=== PATIENT | female | born 1935 | race Caucasian/White ===

== ENCOUNTER 2021-12-28 10:04 | Day surgery (SDC) | payer MEDICARE, BC ==
[2021-12-27 09:25] VITALS: BMI 28.1
[2021-12-28 11:02] VITALS: RESP 16; TEMP 97
[2021-12-28 11:10] LABS: Glucose,Whole Blood 133 mg/dL (75-99)
[2021-12-28] MEDS ORDERED: LACTATED RINGERS 1,000 ML IV ONE (11:11)
[2021-12-28] MEDS ORDERED: PROPOFOL 10 MG/ML 20 ML VIAL IV ONE (11:23)
--- NOTE | 2021-12-28 11:36 | P.PCN ---
Date of Procedure: 12/28/21 Procedure(s) Performed: BRIEF HISTORY: Patient is a 86-year-old, pleasant, white female scheduled for an upper endoscopy as a part of evaluation of progressive dysphagia to solids and liquids for the last 9 months duration. She feels the food gets stuck in her throat area and occasional odynophagia. Long-standing history of GERD and has been on omeprazole 20 mg daily for 5 years. PROCEDURE PERFORMED: Esophagogastroduodenoscopy with biopsy. PREOPERATIVE DIAGNOSIS: Dysphagia to solids and liquids for 9 months duration. IV sedation per anesthesia. PROCEDURE: After informed consent was obtained, the patient was brought into the endoscopy unit. IV sedation was administered by Anesthesia under continuous monitoring. Initially the Olympus GIF-140 video endoscope was inserted into the mouth. Esophagus intubated without any difficulty. But there was mild tightness and upper esophageal sphincter suspicious for mild cricopharyngeal dysfunction. It was gradually advanced into the stomach and duodenum and carefully examined. The bulb and the second part of the duodenum appeared normal. The scope at this time was withdrawn to the stomach, adequately insufflated with air, and upon careful examination, mucosa of the antrum, body, cardia and the fundus appeared normal. The scope was then withdrawn into the esophagus. The GE junction was located at 39 cm from the incisors. Small hiatal hernia noted. The esophagus appeared normal. There were no erosions or ulcerations seen, no evidence of esophageal stricture seen. The proximal cervical esophagus was carefully examined and there was evidence of mild cricopharyngeal dysfunction at the upper esophageal sphincter noted. The patient tolerated the procedure well. IMPRESSION: 1. Mild cricopharyngeal dysfunction. 2. Normal-appearing esophagus with no evidence of esophagitis or esophageal stricture 3. Small hiatal hernia 4. Mild antral gastritis. RECOMMENDATIONS: The findings of this examination were discussed with the patient as well as a family. She was advised to follow with the biopsy results. Her symptoms of dysphagia was likely related to mild cricopharyngeal dysfunction. She will continue with soft diet.
[2021-12-28 11:57] VITALS: BP 120/65; PULSE 60
== END 2021-12-28 12:24 | disposition home or self-care (01) ==
LOC: ORWHC2ENDO 10:04 → MERGE 11:50 → ORWHC2ENDO 12:24
PROVIDERS: ATTEND Internal Medicine Gastroenterology
DX: R13.14 Dysphagia, pharyngoesophageal phase (principal); K29.50 Unspecified chronic gastritis without bleeding; K44.9 Diaphragmatic hernia without obstruction or gangrene; K21.00 Gastro-esophageal reflux disease with esophagitis, without bleeding; I10 Essential (primary) hypertension; E78.5 Hyperlipidemia, unspecified; E11.9 Type 2 diabetes mellitus without complications; E07.9 Disorder of thyroid, unspecified; Z95.1 Presence of aortocoronary bypass graft; E89.0 Postprocedural hypothyroidism; Z95.2 Presence of prosthetic heart valve; Z98.890 Other specified postprocedural states; Z97.2 Presence of dental prosthetic device (complete) (partial); Z79.890 Hormone replacement therapy; Z79.84 Long term (current) use of oral hypoglycemic drugs; Z79.02 Long term (current) use of antithrombotics/antiplatelets; Z79.82 Long term (current) use of aspirin; Z79.899 Other long term (current) drug therapy; Z88.0 Allergy status to penicillin; Z88.2 Allergy status to sulfonamides
CPT/HCPCS: 88305; 43239; J2704

== ENCOUNTER → 2022-02-17 | Outpatient (CLI) | payer MEDICARE, BC ==
--- NOTE | 2022-02-17 16:25 | NM ---
EXAMINATION TYPE: NM bone 3 phase DATE OF EXAM: 02/17/2022 COMPARISON: NONE HISTORY: Right knee pain Delayed whole-body scanning was performed following the injection of 22.4 mCi Tc 99m MDP. Blood flow and blood pool imaging was performed. Static Images were acquired 5.25 hours post injection. FINDINGS: Blood flow: There is increased radiotracer flow to the distal right thigh compared to the left on blo od flow images. Blood pool: Blood pool images appear symmetrical between left and right. No focal accumulation is mayur dent Static images: There is mild increased uptake within the left knee tibial plateau. This is likely deg enerative in nature. There is some mild posterior uptake within the right femur metaphysis adjacent t o the prosthesis. IMPRESSION: 1. Radiotracer distribution through the knees on 3 phase bone scan could suggest some soft tissue inf ection of the right thigh. 2. Suspicious uptake to suggest osteomyelitis is not identified. 3. There may be some degenerative change the left knee.
== END | disposition home or self-care (01) ==
LOC: RADNMMAIN 07:21
PROVIDERS: ATTEND Orthopaedic Surgery
DX: M25.561 Pain in right knee (principal); R93.7 Abnormal findings on diagnostic imaging of other parts of musculoskeletal system
CPT/HCPCS: 78315; A9503

== ENCOUNTER → 2022-07-11 | Outpatient (CLI) | payer MEDICARE, BC ==
[2022-07-11 14:56] LABS: HCT 38.5 % (37.2-46.3); HGB 12.8 g/dL (12.0-15.0); MCH 28.9 pg (27.0-32.0); MCHC 33.2 g/dL (32.0-37.0); MCV 86.9 fL (80.0-97.0); Mean Platelet Volume 10.6 fL (9.5-12.2); NRBC Per 100 WBC 0 /100 WBCS (0.0-0.0); Platelet Count 195 X 10*3/uL (140-440); RBC 4.43 X 10*6/uL (4.10-5.20); RDW 12.9 % (11.5-14.5); WBC 5.05 X 10*3/uL (4.50-10.00)
[2022-07-11 15:27] LABS: Erythrocyte Sedimentation Rate 16 mm/Hr (0-30)
[2022-07-11 15:49] LABS: ALT 18 U/L (8-44); AST 27 U/L (13-35); African American GFR (CKD) 56.7 (60.0-200.0); Albumin 4.7 g/dL (3.8-4.9); Albumin/Globulin Ratio 2.06 (1.60-3.17); Alkaline Phosphatase 69 U/L (41-126); BUN/Creat Ratio 12.31 Ratio (12.00-20.00); Bilirubin, Conjugated <0.20 mg/dL (0.20-0.40); Blood Urea Nitrogen 12.8 mg/dL (9.0-27.0); Calcium 9.5 mg/dL (8.7-10.3); Carbon Dioxide 24.3 mmol/L (20.0-27.5); Chloride 94 mmol/L (96-109); Chol/HDL Ratio 2.13 Ratio; Globulin 2.3 g/dL (1.6-3.3); Glucose 124 mg/dL (70-110); LDL Cholesterol,Calculated 57.4 mg/dL (0.0-131.0); Potassium 4.7 mmol/L (3.5-5.5); Sodium 132 mmol/L (135-145); Total Protein 6.9 g/dL (6.2-8.2)
== END | disposition home or self-care (01) ==
LOC: LABWHC1 08:54
PROVIDERS: ATTEND Internal Medicine Cardiovascular Disease
DX: I50.32 Chronic diastolic (congestive) heart failure (principal); E78.2 Mixed hyperlipidemia; R55 Syncope and collapse; D64.9 Anemia, unspecified; Z95.2 Presence of prosthetic heart valve
CPT/HCPCS: 36415; 80053; 80061; 82248; 82607; 84443; 85027; 85652; 86141

== ENCOUNTER → 2022-07-17 | Outpatient (CLI) | payer MEDICARE, BC ==
--- NOTE | 2022-07-17 19:27 | MR ---
EXAMINATION TYPE: MR brain wo con DATE OF EXAM: 07/17/2022 6:46 PM COMPARISON: None. CLINICAL INDICATION:Female, 87 years old with history of R41.3 AMNESIA, R41.0 DISORIENTATION, R47.01 APHASI; TECHNIQUE: Multi planar, multi sequence imaging was performed through the brain including: T1, T2, In version recovery, Diffusion weighted imaging, and gradient echo imaging. No gadolinium was given. FINDINGS: Generalized atrophy changes with dilation of ventricles in proportion. Patchy areas of high T2 signal intensity are seen within the periventricular white matter. Midline structures show no abnormality. Diffusion-weighted imaging shows no evidence of restricted diffusion. The susceptibility weighted peggy ges do not reveal suggest microhemorrhage in the left posterior cerebral hemisphere. The bone marrow signal is within normal limits. The paranasal sinuses demonstrate mild mucosal thicke yovana. The globes demonstrate bilateral aphakia. IMPRESSION: 1. No evidence of intracranial mass or acute/subacute infarct. 2. Nonspecific white matter changes, likely secondary to small vessel ischemic disease. 3. Age related changes and cerebral volume loss.
== END | disposition home or self-care (01) ==
LOC: RADMRIMAIN 17:54
PROVIDERS: ATTEND Psychiatry & Neurology Neurology
DX: I67.82 Cerebral ischemia (principal)
CPT/HCPCS: 70551

== ENCOUNTER → 2022-10-17 | Outpatient (CLI) | payer MEDICARE, BC ==
--- NOTE | 2022-10-18 09:28 | US ---
EXAMINATION TYPE: US kidneys/renal and bladder DATE OF EXAM: 10/17/2022 COMPARISON: CLINICAL HISTORY: M54.50 Low back pain R39.15 Urgency of urination. Patient states she had increase u rine frequency but has since gone away. EXAM MEASUREMENTS: Right Kidney: 9.3 x 4.5 x 4.5 cm Left Kidney: 9.6 x 3.4 x 4.9 cm Right Kidney: No hydronephrosis or masses seen Left Kidney: No hydronephrosis or masses seen Bladder: Moderately distended, anechoic Bilateral Jets not seen IMPRESSION: 1. Normal renal ultrasound.
== END | disposition home or self-care (01) ==
LOC: RADUSWWP 16:14
PROVIDERS: ATTEND Family Medicine
DX: M54.50 Low back pain, unspecified (principal); R39.15 Urgency of urination; R35.0 Frequency of micturition
CPT/HCPCS: 76770

== ENCOUNTER 2022-11-01 00:54 | Emergency (ER) | payer MEDICARE, BC ==
[2022-11-01 01:15] VITALS: TEMP 97.6
[2022-11-01] MEDS ORDERED: SODIUM CHLORIDE 0.9% 500 ML 500 ML IV STA (01:16)
[2022-11-01] MEDS ORDERED: SODIUM CHLORIDE 0.9% 1,000 ML IV STA ×2 (01:16)
--- NOTE | 2022-11-01 01:19 | ED ---
Weakness HPI - General Chief complaint: Fall Stated complaint: Fall, syncope Time Seen by Provider: 11/01/22 01:16 Source: patient, family, RN notes reviewed, old records reviewed, Caregiver Mode of arrival: wheelchair Limitations: no limitations - History of Present Illness Initial comments: This is a 87-year-old female to the emergency department for evaluation patient presents today for evaluation of weakness severe weakness and fall. No injury noted from fall. Patient has multiple recent falls is on lately medication to help her sleep at night. Patient has been a little bit weak for the last day or 2 history of dehydration fall in the past with syncopal event MD Complaint: generalized weakness, lack of energy, difficulty walking -: hour(s) Location: generalized Severity: severe Severity scale (1-10): 10 Quality: other (0) Consistency: constant Improves with: none Worsens with: none Context: recent illness, history of similar Associated Symptoms: confusion, syncope - Related Data Home Medications Medication Instructions Recorded Confirmed Clopidogrel Bisulfate [Plavix] 75 mg PO DAILY 06/15/15 12/27/21 Levothyroxine Sodium [Synthroid] 112 mcg PO DAILY 06/15/15 12/28/21 Metoprolol Tartrate [Lopressor] 50 mg PO BID 06/15/15 12/28/21 Pravastatin Sodium [Pravachol] 80 mg PO HS 06/15/15 12/28/21 Zolpidem [Ambien] 10 mg PO HS PRN 06/15/15 12/28/21 metFORMIN HCL [Glucophage] 500 mg PO BID 06/15/15 12/28/21 Aspirin [Adult Low Dose Aspirin EC] 81 mg PO DAILY 12/27/21 12/27/21 Gabapentin [Neurontin] 100 mg PO 1200,2000 12/27/21 12/28/21 Gabapentin [Neurontin] 300 mg PO 0800,1700 12/27/21 12/28/21 Isosorbide Mononitrate ER [Imdur] 60 mg PO DAILY 12/27/21 12/28/21 Omeprazole 20 mg PO DAILY 12/27/21 12/28/21 amLODIPine [Norvasc] 5 mg PO HS 12/27/21 12/28/21 Allergies Allergy/AdvReac Type Severity Reaction Status Date / Time Penicillins Allergy Rash/Hives Verified 11/01/22 01:07 sulfamethoxazole Allergy Nausea Verified 11/01/22 01:07 [From Bactrim] trimethoprim [From Bactrim] Allergy Nausea Verified 11/01/22 01:07 Review of Systems ROS Statement: Those systems with pertinent positive or pertinent negative responses have been documented in the HPI. ROS Other: All systems not noted in ROS Statement are negative. 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 Last Myocardial Infarction Date:: 2003 History of Any Multi-Drug Resistant Organisms: None Reported Past Surgical History: Back Surgery, Joint Replacement, Orthopedic Surgery Additional Past Surgical History / Comment(s): 06/23/15 Anterior decompression a nd fusion C4-5, C5-6 with NIM monitoring. HX: vipul knee replacement, vipul knee arthroscopy, rt shoulder rotator cuff, vipul carpal tunnel, cyst removed left kidney, colonoscopy Past Anesthesia/Blood Transfusion Reactions: No Reported Reaction Additional Past Anesthesia/Blood Transfusion Reaction / Comment(s): hx blood transfusions for anemia- denies reaction. Date of Last Stent Placement:: 2007 Past Psychological History: No Psychological Hx Reported Smoking Status: Former smoker Past Alcohol Use History: None Reported Past Drug Use History: None Reported - Past Family History Brother(s) Family Medical History: Cancer Additional Family Medical History / Comment(s): lung cancer Sister(s) Family Medical History: Cancer Additional Family Medical History / Comment(s): lung cancer Mother Family Medical History: Myocardial Infarction (MT) Additional Family Medical History / Comment(s): Mother of a MT at age 76 yrs. Father Additional Family Medical History / Comment(s): Father during aneurysm surgery. He was 76yrs old. General Exam Limitations: no limitations General appearance: alert, in no apparent distress Head exam: Present: atraumatic, normocephalic, normal inspection Eye exam: Present: normal appearance, PERRL, EOMI. Absent: scleral icterus, conjunctival injection, periorbital swelling ENT exam: Present: normal exam, mucous membranes moist Neck exam: Present: normal inspection. Absent: tenderness, meningismus, lymphadenopathy Respiratory exam: Present: normal lung sounds bilaterally. Absent: respiratory distress, wheezes, rales, rhonchi, stridor Cardiovascular Exam: Present: regular rate, normal rhythm, normal heart sounds. Absent: systolic murmur, diastolic murmur, rubs, gallop, clicks GI/Abdominal exam: Present: soft, normal bowel sounds. Absent: distended, tenderness, guarding, rebound, rigid Extremities exam: Present: normal inspection, full ROM, normal capillary refill. Absent: tenderness, pedal edema, joint swelling, calf tenderness Back exam: Present: normal inspection Neurological exam: Present: alert, oriented X3, CN II-XII intact Psychiatric exam: Present: normal affect, normal mood Skin exam: Present: warm, dry, intact, normal color. Absent: rash Course Vital Signs 11/01/22 11/01/22 11/01/22 01:08 01:48 02:18 Temperature 97.6 F Pulse Rate 56 L 66 Pulse Rate [ 58 L Apical] Respiratory 16 14 Rate Blood Pressure 71/37 114/63 O2 Sat by Pulse 95 97 Oximetry 11/01/22 02:57 Temperature Pulse Rate 62 Pulse Rate [ Apical] Respiratory 16 Rate Blood Pressure 138/77 O2 Sat by Pulse 98 Oximetry - Reevaluation(s) Reevaluation #1: 11/01/22 02:11 Medical record is reviewed Reevaluation #2: 11/01/22 03:29 Patient symptoms are significant improved Reevaluation #3: 11/01/22 03:29 Patient informed results and questions are answered Reevaluation #4: 11/01/22 02:11 Differential Weakness: Hypoglycemia, shock, sepsis, hyponatremia, anemia, infection, MT, ETOH, adverse medicine reaction, overdose, stroke, this is not meant to be an all-inclusive list. Reevaluation #5: 11/01/22 02:12 Was pt. sent in by a medical professional or institution? @ -no Did you speak to anyone other than the patient for history? @ -EMS, family/daughter Did you review nursing and triage notes? @ -agreeno Were old charts reviewed? @ -[outside hosp., previous admissions, EMS record, old EKG, old radiological studies, urgent care reports/EKGs, jail records?] Differential Diagnosis? @ -see prior EKG interpreted by me (3pts min.)? @ -yes X-rays interpreted by me (1pt min.)? @ -yes CT interpreted by me (1pt min.)? @ -[none] U/S interpreted by me (1pt. min.)? @ -[none] What testing was considered but not performed? (CT, X-rays, U/S, labs)? Why? @ no What meds were considered but not given? Why? @ -no Did you discuss the management of the patient with other professionals? @ -no Did you reconcile home meds? @ -[none] Was smoking cessation discussed for >3mins.? @ -[none] Was critical care preformed (if so, how long)? @ -[none] Were there social determinants of health that impacted care today? How? (Homelessness, low income, unemployed, alcoholism, drug addiction, transportation, low edu. Level, literacy, decrease access to med. care, fci, rehab)? @ -no Was there de-escalation of care discussed even if they declined? (Discuss DNR or withdrawal of care, Hospice)? @ -no What co-morbidities impacted this encounter? (DM, HTN, Smoking, COPD, CAD, Cancer, CVA, Hep., AIDS, mental health diagnosis, sleep apnea, morbid obesity)? @ -no Was patient admitted / discharged? @ -discharge Undiagnosed new problem with uncertain prognosis? @ -[none] Drug Therapy requiring intensive monitoring for toxicity (Heparin, Nitro, Insul in, Cardizem)? @ -[none] Were any procedures done? @ -[none] Diagnosis/symptom? @ -no Acute, or Chronic, or Acute on Chronic? @ -no Uncomplicated (without systemic symptoms) or Complicated (systemic symptoms)? @ -no Side effects of treatment? @ -[none] Exacerbation, Progression, or Severe Exacerbation] @ -[no] Poses a threat to life or bodily function? @ -[no] 11/01/22 03:28 EKG Findings - EKG Comments: EKG Findings:: EKG is sinus bradycardia 58 OR 221 QRS 152 QTC 458 Medical Decision Making - Medical Decision Making 87 female to the emergency department status post fall this is a trip and fall possibly medication induced Hydration blood pressure induced. No triadic injury is noted. Lab values are normal urine is negative patient can be discharged home - Lab Data Result diagrams: 11/01/22 01:11/01/22 01:30 Lab Results 11/01/22 11/01/22 11/01/22 Range/Units 01: 01:30 01:30 WBC 4.6 (3.8-10.6) k/uL RBC 4.01 (3.80-5.40) m/uL Hgb 12.1 (11.4-16.0) gm/dL Hct 35.3 (34.0-46.0) % MCV 88.1 (80.0-100.0) fL MCH 30.1 (25.0-35.0) pg MCHC 34.1 (31.0-37.0) g/dL RDW 13.1 (11.5-15.5) % Plt Count 125 L (150-450) k/uL MPV 8.8 Neutrophils % 57 % Lymphocytes % 30 % Monocytes % 9 % Eosinophils % 1 % Basophils % 1 % Neutrophils # 2.6 (1.3-7.7) k/uL Lymphocytes # 1.4 (1.0-4.8) k/uL Monocytes # 0.4 (0-1.0) k/uL Eosinophils # 0.0 (0-0.7) k/uL Basophils # 0.0 (0-0.2) k/uL PT 10.2 (9.0-12.0) sec INR 1.0 (<1.2) APTT 23.2 (22.0-30.0) sec Sodium 131 L (137-145) mmol/L Potassium 4.5 (3.5-5.1) mmol/L Chloride 100 (98-107) mmol/L Carbon Dioxide 23 (22-30) mmol/L Anion Gap 8 mmol/L BUN 20 H (7-17) mg/dL Creatinine 1.03 (0.52-1.04) mg/dL Est GFR (CKD-EPI)AfAm 57 (>60 ml/min/1.73 sqM) Est GFR (CKD-EPI)NonAf 50 (>60 ml/min/1.73 sqM) Glucose 138 H (74-99) mg/dL Plasma Lactic Acid Higinio (0.7-2.0) mmol/L Calcium 8.3 L (8.4-10.2) mg/dL Phosphorus 4.7 H (2.5-4.5) mg/dL Magnesium 1.3 L (1.6-2.3) mg/dL Total Bilirubin 0.5 (0.2-1.3) mg/dL AST 26 (14-36) U/L ALT 16 (4-34) U/L Alkaline Phosphatase 48 (38-126) U/L Troponin I (0.000-0.034) ng/mL NT-Pro-B Natriuret Pep pg/mL Total Protein 5.9 L (6.3-8.2) g/dL Albumin 3.5 (3.5-5.0) g/dL TSH 2.110 (0.465-4.680) mIU/L Urine Color Urine Appearance (Clear) Urine pH (5.0-8.0) Ur Specific Jackson (1.001-1.035) Urine Protein (Negative) Urine Glucose (UA) (Negative) Urine Ketones (Negative) Urine Blood (Negative) Urine Nitrite (Negative) Urine Bilirubin (Negative) Urine Urobilinogen (<2.0) mg/dL Ur Leukocyte Esterase (Negative) Urine RBC (0-5) /hpf Urine WBC (0-5) /hpf Ur Squamous Epith Cells (0-4) /hpf Urine Bacteria (None) /hpf Hyaline Casts (0-2) /lpf Urine Mucus (None) /hpf 11/01/22 11/01/22 11/01/22 Range/Units 01:30 01:30 01:30 WBC (3.8-10.6) k/uL RBC (3.80-5.40) m/uL Hgb (11.4-16.0) gm/dL Hct (34.0-46.0) % MCV (80.0-100.0) fL MCH (25.0-35.0) pg MCHC (31.0-37.0) g/dL RDW (11.5-15.5) % Plt Count (150-450) k/uL MPV Neutrophils % % Lymphocytes % % Monocytes % % Eosinophils % % Basophils % % Neutrophils # (1.3-7.7) k/uL Lymphocytes # (1.0-4.8) k/uL Monocytes # (0-1.0) k/uL Eosinophils # (0-0.7) k/uL Basophils # (0-0.2) k/uL PT (9.0-12.0) sec INR (<1.2) APTT (22.0-30.0) sec Sodium (137-145) mmol/L Potassium (3.5-5.1) mmol/L Chloride (98-107) mmol/L Carbon Dioxide (22-30) mmol/L Anion Gap mmol/L BUN (7-17) mg/dL Creatinine (0.52-1.04) mg/dL Est GFR (CKD-EPI)AfAm (>60 ml/min/1.73 sqM) Est GFR (CKD-EPI)NonAf (>60 ml/min/1.73 sqM) Glucose (74-99) mg/dL Plasma Lactic Acid Higinio 1.4 (0.7-2.0) mmol/L Calcium (8.4-10.2) mg/dL Phosphorus (2.5-4.5) mg/dL Magnesium (1.6-2.3) mg/dL Total Bilirubin (0.2-1.3) mg/dL AST (14-36) U/L ALT (4-34) U/L Alkaline Phosphatase (38-126) U/L Troponin I <0.012 (0.000-0.034) ng/mL NT-Pro-B Natriuret Pep 1220 pg/mL Total Protein (6.3-8.2) g/dL Albumin (3.5-5.0) g/dL TSH (0.465-4.680) mIU/L Urine Color Urine Appearance (Clear) Urine pH (5.0-8.0) Ur Specific Jackson (1.001-1.035) Urine Protein (Negative) Urine Glucose (UA) (Negative) Urine Ketones (Negative) Urine Blood (Negative) Urine Nitrite (Negative) Urine Bilirubin (Negative) Urine Urobilinogen (<2.0) mg/dL Ur Leukocyte Esterase (Negative) Urine RBC (0-5) /hpf Urine WBC (0-5) /hpf Ur Squamous Epith Cells (0-4) /hpf Urine Bacteria (None) /hpf Hyaline Casts (0-2) /lpf Urine Mucus (None) /hpf 11/01/22 Range/Units 04:03 WBC (3.8-10.6) k/uL RBC (3.80-5.40) m/uL Hgb (11.4-16.0) gm/dL Hct (34.0-46.0) % MCV (80.0-100.0) fL MCH (25.0-35.0) pg MCHC (31.0-37.0) g/dL RDW (11.5-15.5) % Plt Count (150-450) k/uL MPV Neutrophils % % Lymphocytes % % Monocytes % % Eosinophils % % Basophils % % Neutrophils # (1.3-7.7) k/uL Lymphocytes # (1.0-4.8) k/uL Monocytes # (0-1.0) k/uL Eosinophils # (0-0.7) k/uL Basophils # (0-0.2) k/uL PT (9.0-12.0) sec INR (<1.2) APTT (22.0-30.0) sec Sodium (137-145) mmol/L Potassium (3.5-5.1) mmol/L Chloride (98-107) mmol/L Carbon Dioxide (22-30) mmol/L Anion Gap mmol/L BUN (7-17) mg/dL Creatinine (0.52-1.04) mg/dL Est GFR (CKD-EPI)AfAm (>60 ml/min/1.73 sqM) Est GFR (CKD-EPI)NonAf (>60 ml/min/1.73 sqM) Glucose (74-99) mg/dL Plasma Lactic Acid Higinio (0.7-2.0) mmol/L Calcium (8.4-10.2) mg/dL Phosphorus (2.5-4.5) mg/dL Magnesium (1.6-2.3) mg/dL Total Bilirubin (0.2-1.3) mg/dL AST (14-36) U/L ALT (4-34) U/L Alkaline Phosphatase (38-126) U/L Troponin I (0.000-0.034) ng/mL NT-Pro-B Natriuret Pep pg/mL Total Protein (6.3-8.2) g/dL Albumin (3.5-5.0) g/dL TSH (0.465-4.680) mIU/L Urine Color Yellow Urine Appearance Clear (Clear) Urine pH 5.5 (5.0-8.0) Ur Specific Jackson 1.014 (1.001-1.035) Urine Protein Negative (Negative) Urine Glucose (UA) Negative (Negative) Urine Ketones Negative (Negative) Urine Blood Negative (Negative) Urine Nitrite Negative (Negative) Urine Bilirubin Negative (Negative) Urine Urobilinogen <2.0 (<2.0) mg/dL Ur Leukocyte Esterase Small H (Negative) Urine RBC 2 (0-5) /hpf Urine WBC 5 (0-5) /hpf Ur Squamous Epith Cells 1 (0-4) /hpf Urine Bacteria Occasional H (None) /hpf Hyaline Casts 19 H (0-2) /lpf Urine Mucus Rare H (None) /hpf - Radiology Data Radiology results: report reviewed (CT brain C-spine chest and pelvis x-ray are negative for acute disease), image reviewed Disposition Clinical Impression: Pre-syncope, Syncope, Fall, Weakness, Dehydration Disposition: HOME SELF-CARE Condition: Fair Is patient prescribed a controlled substance at d/c from ED?: No Referrals: Karri Decker DO [Primary Care Provider] - 1-2 days Time of Disposition: 04:45
[2022-11-01 02:01] LABS: Basophils % (A) 1 %; Eosinophils % (A) 1 %; HCT 35.3 % (34.0-46.0); HGB 12.1 gm/dL (11.4-16.0); Lymphocytes # (A) 1.4 k/uL (1.0-4.8); Lymphocytes % (A) 30 %; MCH 30.1 pg (25.0-35.0); MCHC 34.1 g/dL (31.0-37.0); MCV 88.1 fL (80.0-100.0); Mean Platelet Volume 8.8; Monocytes # (A) 0.4 k/uL (0-1.0); Monocytes % (A) 9 %; Neutrophils # (A) 2.6 k/uL (1.3-7.7); Neutrophils % (A) 57 %; Platelet Count 125 k/uL (150-450); RBC 4.01 m/uL (3.80-5.40); RDW 13.1 % (11.5-15.5); WBC 4.6 k/uL (3.8-10.6)
[2022-11-01 02:15] LABS: Albumin 3.5 g/dL (3.5-5.0); Calcium 8.3 mg/dL (8.4-10.2); Magnesium 1.3 mg/dL (1.6-2.3); Phosphorus 4.7 mg/dL (2.5-4.5); Potassium 4.5 mmol/L (3.5-5.1); Total Bilirubin 0.5 mg/dL (0.2-1.3); Total Protein 5.9 g/dL (6.3-8.2)
--- NOTE | 2022-11-01 02:27 | CT ---
EXAMINATION TYPE: CT brain jenn vigil DATE OF EXAM: 11/01/2022 COMPARISON: None HISTORY: fall syncope CT DLP: 1348.4 mGycm Automated exposure control for dose reduction was used. Images of the brain and cervical spine obtained with no contrast. There is mild cerebral cortical atrophy. There is no mass effect or midline shift. No sign of intracr anial hemorrhage. There is some mild hypodensity in the periventricular white matter. The calvarium i s intact. The skull base is intact. There is normal aeration of the mastoid sinuses. There is some mucosal thic kening in the ethmoid and maxillary sinuses. The cervical vertebra have normal alignment. There is plate with screws fusing anteriorly the cervica l spine from C4 to C6. No fracture seen. Facet joints are intact. Prevertebral soft tissues are intac t. There is degenerative endplate spurring at C6-7. IMPRESSION: Mild cerebral atrophy. No acute intracranial abnormality. Mild chronic small vessel ischemia. Cervical spine fusion surgery. Spondylosis at C6-7. No fracture seen.
--- NOTE | 2022-11-01 02:39 | XR ---
EXAMINATION TYPE: XR pelvis AP view DATE OF EXAM: 11/01/2022 COMPARISON: NONE HISTORY: Pain TECHNIQUE: Single view FINDINGS: The pelvic ring is intact. Proximal femurs are intact. There is minor acetabular spurring. No hip fracture seen. There is posterior fusion surgery in the lower lumbar spine. Sacroiliac joints are intact. IMPRESSION: No acute abnormality of the pelvis. No hip fracture.
--- NOTE | 2022-11-01 02:41 | XR ---
EXAMINATION TYPE: XR chest 1V DATE OF EXAM: 11/01/2022 COMPARISON: 01/23/2022 HISTORY: Fall. Short of breath. TECHNIQUE: Single view FINDINGS: Heart is enlarged. There are sternal wires. There is mild pulmonary congestion. There are c hest leads. No pneumothorax. There is aortic valve surgery. IMPRESSION: Pulmonary congestion increased compared to old exam and could be mild heart failure.
[2022-11-01 02:46] LABS: Partial Thromboplastin Time 23.2 sec (22.0-30.0); Prothrombin Time 10.2 sec (9.0-12.0)
[2022-11-01 02:57] VITALS: BP 138/77; PULSE 62; RESP 16
[2022-11-01 04:40] LABS: Appearance,Urine Clear (Clear); Bacteria,Urine Occasional /hpf; Bilirubin,Urine Negative (Negative); Blood,Urine Negative (Negative); Color,Urine Yellow; Glucose,Urine (UA) Negative (Negative); Hyaline Casts,Urine 19 /lpf (0-2); Ketones,Urine Negative (Negative); Leukocyte Esterase,Urine Small (Negative); Mucus,Urine Rare /hpf; Nitrite,Urine Negative (Negative); PH, Urine 5.5 (5.0-8.0); Protein,Urine Negative (Negative); RBC,Urine 2 /hpf (0-5); Specific Gravity,Urine 1.014 (1.001-1.035); Squamous Epithelial Cell,Urine 1 /hpf (0-4); Urobilinogen,Urine <2.0 mg/dL (<2.0); WBC,Urine 5 /hpf (0-5)
== END 2022-11-01 04:53 | disposition home or self-care (01) ==
LOC: EC 00:54
DX: R55 Syncope and collapse (principal); R53.1 Weakness; E86.0 Dehydration; I67.82 Cerebral ischemia; M47.812 Spondylosis without myelopathy or radiculopathy, cervical region; I11.9 Hypertensive heart disease without heart failure; I25.10 Atherosclerotic heart disease of native coronary artery without angina pectoris; E11.9 Type 2 diabetes mellitus without complications; K21.9 Gastro-esophageal reflux disease without esophagitis; E78.5 Hyperlipidemia, unspecified; I25.2 Old myocardial infarction; M19.90 Unspecified osteoarthritis, unspecified site; I26.99 Other pulmonary embolism without acute cor pulmonale; E07.9 Disorder of thyroid, unspecified; Z87.891 Personal history of nicotine dependence; Z79.890 Hormone replacement therapy; Z79.82 Long term (current) use of aspirin; Z79.02 Long term (current) use of antithrombotics/antiplatelets; Z79.84 Long term (current) use of oral hypoglycemic drugs; Z79.899 Other long term (current) drug therapy; Z88.0 Allergy status to penicillin; Z88.2 Allergy status to sulfonamides; Z88.1 Allergy status to other antibiotic agents; W18.30XA Fall on same level, unspecified, initial encounter; Y92.29 Other specified public building as the place of occurrence of the external cause
CPT/HCPCS: 36415; 70450; 71045; 72125; 72170; 80053; 81001; 83605; 83735; 83880; 84100; 84443; 84484; 85025; 85610; 85730; 93005; 96360; 96361; 99285

== ENCOUNTER → 2022-11-13 | Outpatient (CLI) | payer MEDICARE, BC ==
--- NOTE | 2022-11-13 10:19 | FL ---
EXAMINATION TYPE: FL barium swallow DATE OF EXAM: 11/13/2022 10:08 AM COMPARISON: No direct comparisons. CLINICAL INDICATION:Female, 87 years old with history of R13.10 DYSPHAGIA; PHH, TECHNIQUE: The procedure was explained and patient history elicited. All patient questions were ans wered prior to start of procedure. Multiple spot fluoroscopic images of the esophagus were obtained a fter the oral ingestion of effervescent crystals and liquid barium as the contrast agent. Fluoroscopic time: 12 seconds Fluoroscopic images: 180 FINDINGS: Delayed initiation of swallow. The esophagus demonstrates normal primary and secondary peristalsis. Tertiary contractions in the sha ronda. The esophageal mucosa is smooth without evidence of focal stricture, ulceration, or abnormal out pouching. No gastroesophageal reflux disease was identified . Cervical fusion hardware demonstrated. Midline sternal wires. Vascular calcification of the aorta. Ao rtic root stent graft. IMPRESSION: 1. Mild esophageal dysmotility with delayed initiation of swallow. 2. No hiatal hernia or gastroesophageal reflux identified.
== END | disposition home or self-care (01) ==
LOC: RADUSWWP 09:39
PROVIDERS: ATTEND Internal Medicine Gastroenterology
DX: K22.4 Dyskinesia of esophagus (principal); R13.10 Dysphagia, unspecified
CPT/HCPCS: 74220

== ENCOUNTER → 2023-03-01 | Outpatient (CLI) | payer MEDICARE, BC ==
--- NOTE | 2023-03-01 18:00 | US ---
EXAMINATION TYPE: US thyroid st tissue head/neck DATE OF EXAM: 03/01/2023 COMPARISON: CT brain C-spine 12/14/2022 CLINICAL INDICATION: Female, 87 years old with history of C73 MALIG NEOPLASM THYROID, L04.0 ACUTE LYM PHADENI; Hx thyroid cancer in 1962, thyroid gland removed. Patient is on synthroid. GLAND SIZE: Right Lobe: Surgically absent Left Lobe: Surgically absent Isthmus Thickness: Surgically absent NODULES Hypoechoic tissue with vascularity seen within the right thyroid bed measurin.5 x 0.6 x 0.4 cm. Bilateral neck scanned. Scanned patient's area of palpable concern within the right submandibular area. Two septated hypoecho ic areas seen. #1 superior: 1.0 x 0.9 x 0.7 cm. #2 inferior: 1.3 x 1.3 x 0.8 cm. These appear to correspond to inferior right parotid gland lesions prior CT. IMPRESSION: 1. Hypoechoic tissue within the right thyroidectomy bed with vascularity measuring up to 0.6 cm conc erning for possible recurrence versus residual thyroid tissue. Further evaluation is recommended with consideration for ultrasound-guided biopsy. 2. Additionally there are 2 hypoechoic lesions with posterior acoustic shadowing within the right in ferior parotid region with internal color flow concerning for possible metastasis versus salivary gla nd lesion. Further evaluation is recommended with consideration for ultrasound-guided biopsy.
== END | disposition home or self-care (01) ==
LOC: RADUSWWP 15:54
PROVIDERS: ATTEND Family Medicine
DX: C73 Malignant neoplasm of thyroid gland (principal); L04.0 Acute lymphadenitis of face, head and neck
CPT/HCPCS: 76536

== ENCOUNTER 2023-04-19 09:03 | Day surgery (SDC) | payer MEDICARE, BC ==
[2023-04-19 09:42] VITALS: RESP 16; TEMP 97.6
--- NOTE | 2023-04-19 10:42 | US ---
ULTRASOUND GUIDED FNA RIGHT NECK MASSES BIOPSY: CLINICAL HISTORY: Request for FNA to right neck masses FINDINGS: The procedure was explained to the patient. The risks, complications, benefits and alternatives were discussed and any questions were answered. Informed consent was obtained. Patient was placed supin e on the ultrasound table and prepped and draped in the usual sterile fashion. Utilizing a 25 gauge needle, 3 passes were made into the both of the requested right neck masses. A single 18-gauge core samples obtained of the larger right neck mass measuring 1.3 cm and located inferiorly. Patient was stable throughout the procedure. Pathology is pending. All elements of maximal barrier technique were utilized. IMPRESSION: 1. Successful ultrasound guided FNA\core biopsy requested right neck masses.
[2023-04-19 15:43] VITALS: BP 127/76; PULSE 78
== END 2023-04-19 11:00 | disposition home or self-care (01) ==
LOC: RADPROMAIN 09:03
PROVIDERS: ATTEND Otolaryngology
DX: D36.7 Benign neoplasm of other specified sites (principal)
CPT/HCPCS: 10005; 10006; 42400; 76942; 88173; 88305

== ENCOUNTER → 2023-11-29 | Outpatient (CLI) | payer MEDICARE, BC ==
--- NOTE | 2023-11-29 20:05 | US ---
EXAMINATION TYPE: US st tissue head DATE OF EXAM: 11/29/2023 COMPARISON: 03/01/2023 CLINICAL INDICATION: Female, 88 years old with history of R22.1 LOCALIZED SWELLING, MASS AND LUMP, NE CK; Patient states that she has a palpable lump in the right parotid area. FINDINGS: Nitrator Operator notes: There are two lesions located in the parotid gland. The superior, solid appearing nodule measures 0.7 x 0.7 x 0.7cm, previously measuring 1.0 x 0.7 x 0.9 . The inferior, complex nodule measures 1.3 x 0.8 x 0.7 with vascularity within, previously measuring 1.3 x 0.8 x 1.3cm. Left parotid region scanned for comparison. IMPRESSION: 2 solid right parotid gland nodules. These are stable to slightly smaller measuring 7 mm versus 10 mm , previously superiorly. 1.3 x 0.8 cm versus 1.3 x 1.37 m, previously. Correlate with results on prio r biopsy.
== END | disposition home or self-care (01) ==
LOC: RADUSWWP 14:50
PROVIDERS: ATTEND Otolaryngology
DX: D11.0 Benign neoplasm of parotid gland (principal); R22.1 Localized swelling, mass and lump, neck
CPT/HCPCS: 76536

== ENCOUNTER → 2024-08-14 | Outpatient (CLI) | payer MEDICARE, BC ==
--- NOTE | 2024-08-19 09:22 | PE ---
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 Images are reviewed on the computer in the coronal, a xial, and sagittal planes. Reconstructed rotating images are created on independent workstation and reviewed on the computer. A non-contrast CT is performed in conjunction with the PET scan. Glucose level 122 mg/dL CT DLP: 379 mGycm, Automated exposure control for dose reduction was used. COMPARISON: CT 12/14/2022, PET/CT None, MRI: None FINDINGS: Mediastinal SUV mean is 5.1 . Hepatic parenchyma SUV mean is 2.6. SKULL BASE AND NECK: The thyroid gland appears surgically absent. No abnormal uptake within the neck. No suspicious radiot racer activity. CHEST, MEDIASTINUM, AND HILAR REGION: * Right upper lobe nodular densities with more solid appearing area measuring measuring 8 x 6 mm Max SUV 3.2 ABDOMEN AND PELVIS: * No suspicious radiotracer activity. * Physiologic uptake throughout the bowel. MUSCULOSKELETAL STRUCTURES: No suspicious radiotracer activity. OTHER CT: Bilateral aphakia. Intracranial atherosclerosis of the arterial vasculature. Atherosclerosi s of the carotid bifurcation and coronary arteries. Aortic valvular repair changes. Coronary artery r epair changes. Calcified granulomas within the spleen and liver. The gallbladder surgically absent. N onobstructing renal calculi versus vascular calcifications. Scattered colonic diverticula. Uterus is surgically absent. Fixation hardware in the lower spine appears intact. IMPRESSION: 1. Right upper lobe pulmonary parenchymal abnormality with mild uptake. Short-term follow-up CT karan mmended this is suspicious. Alternatively this could represent infectious/inflammatory process. Findi ng is new from 12/14/2022. 2. Suspected surgically absent thyroid gland without abnormal uptake within the head or neck. 3. No additional areas of suspicious uptake. [facility], , 08/19/2024 9:20 AM
== END | disposition home or self-care (01) ==
LOC: RADPETMAIN 08:02
PROVIDERS: ATTEND Family Medicine
CPT/HCPCS: 78815

== ENCOUNTER → 2024-11-20 | Outpatient (CLI) | payer MEDICARE, BC ==
--- NOTE | 2024-11-20 15:55 | US ---
EXAMINATION TYPE: US thyroid st tissue head/neck DATE OF EXAM: 11/20/2024 COMPARISON: Prior ultrasound November 29, 2023. Prior PET/CT August 15, 2024 CLINICAL INDICATION: Female, 89 years old with history of R22.1 LOCALIZED SWELLING; F/U parotid mass TECHNIQUE: Grayscale and color Doppler imaging of the thyroid gland. FINDINGS: Two hypoechoic areas again seen in the right parotid gland. Largest measures 1.3x0.9x1.1cm. Stable. S econd area measures 0.8x0.7x0.7cm stable. IMPRESSION: Stable in size 2 small right-sided solid masses could reflect prominent lymph nodes; they did not show abnormal hypermetabolic uptake on recent PET CT suggesting nonmalignant etiology. [facility], , 11/20/2024 3:52 PM
== END | disposition home or self-care (01) ==
LOC: RADUSWWP 15:09
PROVIDERS: ATTEND Otolaryngology
DX: R22.1 Localized swelling, mass and lump, neck (principal); R22.0 Localized swelling, mass and lump, head
CPT/HCPCS: 76536

== ENCOUNTER → 2024-11-25 | Outpatient (CLI) | payer MEDICARE, BC ==
[2024-11-25 19:26] LABS: Basophils # (A) 0.07 X 10*3/uL (0.00-0.10); Basophils % (A) 0.9 %; Eosinophils % (A) 1.3 %; HCT 31.6 % (37.2-46.3); HGB 9.8 g/dL (12.0-15.0); Lymphocytes # (A) 2.36 X 10*3/uL (0.90-5.00); Lymphocytes % (A) 31.3 %; MCV 87.1 FL (80.0-97.0); Mean Platelet Volume 11.2 FL (9.5-12.2); Monocytes # (A) 0.52 X 10*3/uL (0.20-1.00); Monocytes % (A) 6.9 %; NRBC Per 100 WBC 0 X 10*3/uL (0.00-0.01); Neutrophils # (A) 4.47 X 10*3/uL (1.80-7.70); Neutrophils % (A) 59.2 %; Platelet Count 212 X 10*3/uL (140-440); RBC 3.63 X 10*6/uL (4.10-5.20); RDW 15.2 % (11.5-14.5); WBC 7.55 X 10*3/uL (4.50-10.00)
[2024-11-25 19:54] LABS: ALT 11 U/L (8-44); AST 19 U/L (13-35); Albumin 4.3 g/dL (3.8-4.9); Albumin/Globulin Ratio 1.79 Ratio (1.60-3.17); Alkaline Phosphatase 67 U/L (41-126); BUN/Creat Ratio 14.69 Ratio (12.00-20.00); Blood Urea Nitrogen 23.5 mg/dL (9.0-27.0); Calcium 9.2 mg/dL (8.7-10.3); Carbon Dioxide 21.6 mmol/L (21.6-31.8); Chloride 102 mmol/L (96-109); Globulin 2.4 g/dL (1.6-3.3); Glucose 175 mg/dL (70-110); Potassium 4.5 mmol/L (3.5-5.5); Sodium 139 mmol/L (135-145); Total Bilirubin 0.3 mg/dL (0.3-1.2); Total Protein 6.7 g/dL (6.2-8.2)
== END | disposition home or self-care (01) ==
LOC: LABWHC1 12:52
PROVIDERS: ATTEND Internal Medicine Cardiovascular Disease
DX: I25.810 Atherosclerosis of coronary artery bypass graft(s) without angina pectoris (principal); I11.9 Hypertensive heart disease without heart failure
CPT/HCPCS: 36415; 80053; 85025

== ENCOUNTER → 2025-02-24 | Outpatient (CLI) | payer MEDICARE, BC ==
[2025-02-24 07:17] LABS: African American GFR (CKD) 58 (>60 ml/min/1.73 sqM); Blood Urea Nitrogen 28 mg/dL (7-17); Non-African American GFR(CKD) 50 (>60 ml/min/1.73 sqM)
--- NOTE | 2025-02-24 07:48 | CT ---
EXAMINATION TYPE: CT chest w con DATE OF EXAM: 02/24/2025 7:42 AM COMPARISON: PET/CT dated 08/14/2024 CLINICAL INDICATION: Female, 89 years old with history of R91.1 SOLITARY PULMONARY NODULE, spot on efra ng, TECHNIQUE: CT scan of the chest is performed with IV Contrast, patient injected with 80 mL of Isovue 300. CT DLP: 312.7 mGycm, Automated exposure control for dose reduction was used. FINDINGS: LUNGS: The lungs are grossly clear, there is no concerning parenchymal mass or nodule identified. C alcified granuloma in the region of the lingula. There is no pleural effusion or pneumothorax seen. The tracheobronchial tree is patent. MEDIASTINUM: There are no greater than 1 cm hilar or mediastinal lymph nodes. No pericardial effusi on is seen. Thoracic aorta is of normal caliber. HEART: Cardiomegaly is demonstrated. No significant coronary artery calcifications. UPPER ABDOMEN: No significant abnormality appreciated. OTHER: No additional significant abnormality is seen. IMPRESSION: No concerning pulmonary nodule or mass at this time. No infiltrate or volume loss. [facility], , 02/24/2025 7:45 AM
== END | disposition home or self-care (01) ==
LOC: RADCTMAIN 06:22
PROVIDERS: ATTEND Internal Medicine
DX: R91.1 Solitary pulmonary nodule (principal)
CPT/HCPCS: 82565; 84520; 71260; 36415; Q9967

== ENCOUNTER → 2025-03-16 | Outpatient (CLI) | payer MEDICARE, BC ==
[~2025-03-16] MED LIST: SODIUM CHLORIDE 0.9% 250 ML in EMPTY BAG 1 BAG IV PRN
[2025-03-16 07:54] VITALS: BP 125/70; PULSE 118; RESP 16; TEMP 98
[2025-03-16] MEDS: SODIUM CHLORIDE 0.9% 500 ML 500 ML in EMPTY BAG 1 BAG IV PRN (07:55)
== END ==
LOC: PROCWHC3 07:41
PROVIDERS: ATTEND Family Medicine
DX: D50.0 Iron deficiency anemia secondary to blood loss (chronic) (principal); I12.9 Hypertensive chronic kidney disease with stage 1 through stage 4 chronic kidney disease, or unspecified chronic kidney disease; N18.31 Chronic kidney disease, stage 3a; D63.1 Anemia in chronic kidney disease
CPT/HCPCS: 96365; Q0138

== ENCOUNTER → 2025-04-23 | Outpatient (CLI) | payer MEDICARE, BC ==
--- NOTE | 2025-04-24 11:21 | MR ---
EXAMINATION TYPE: MR foot LT wo con DATE OF EXAM: 04/23/2025 8:26 PM COMPARISON: None. CLINICAL INDICATION: Female, 89 years old with history of M79.672; PHH, Open wound near first metatar lissette medial side. marker placed. TECHNIQUE: Multiplanar, multisequence MR imaging of the forefoot was performed administration of IV gadolinium contrast. MR contrast: IV Contrast: mL ( none if empty) FINDINGS: Soft tissue wound involving the subcutaneous tissues medially near the first metatarsophala ngeal joint. There is degenerative cystic change in the first metatarsal otherwise bone marrow signal is high T1 signal. No organizing fluid collections visualized. There is scattered streaky edema thro ughout the soft tissues of the foot. Motion limits evaluation. Mild scattered degeneration changes throughout the joints of the foot with joint space tearing osteophyte formation. Scattered areas of bony edema in addition to joints noted. There is no evidence of fracture. There is no periosteal reaction. Medial and lateral hallux sesamoid s have a normal appearance. There is no evidence of a plantar plate injury. There is no evidence of a joint effusion. There is no evidence of synovitis. There is no evidence of intermetatarsal bursitis. No Mortons neuroma is present. Flexor tendons are intact. Extensor tendons are intact. No evidence of tenosynovitis. IMPRESSION: 1. Soft tissue wound near the medial aspect of the first digit metatarsophalangeal joint without mayur dence for osteomyelitis. No organizing fluid collections. 2. Mild multifocal degeneration changes throughout the joints of the foot. [facility], , 04/24/2025 11:18 AM
== END | disposition home or self-care (01) ==
LOC: RADMRIMAIN 19:30
PROVIDERS: ATTEND Physical Medicine & Rehabilitation
DX: M19.072 Primary osteoarthritis, left ankle and foot (principal)